=== PATIENT | female | born 1995 | race Caucasian/White ===

== ENCOUNTER 2017-06-20 11:01 | Emergency (ER) | payer SELFPAY ==
[~2017-06-20] VITALS: Ht 162.6 cm; Wt 51.7 kg
[~2017-06-20 11:01] MED LIST: PREN1CAP7
[2017-06-20] MEDS ORDERED: ACETAMINOPHEN 325 MG TAB PO ONE (11:45)
--- NOTE | 2017-06-20 11:47 | PD ---
HPI Chief Complaint Abdominal pain Date Seen: Jun 20, 2017 Time Seen: 11:30 Travel History International Travel<30 Days: No Contact w/Intl Traveler<30Days: No Known Affected Area: No History of Present Illness HPI Patient is a 22-year-old at 21 weeks and 2 days who presents with crampy abdominal pain since yesterday. She is a patient of Alla Morley at [facility]. She reports that her abdominal pain started yesterday at 11 AM when she says she lost her mucous plug which was associated with clear mucousy vaginal discharge. Since that time she has had bilateral suprapubic crampy abdominal pain, 2-3 out of 10 severity. She has tried drinking water, elevating her feet, warm baths, lying on her left side, none of which has helped. Alla Morley told her to come in and be evaluated. She denies any leakage of fluid, contractions, vaginal bleeding. She reports movement is at baseline. Weeks Gestation: 21 Para: 2 : 3 History Past Medical History Medical History: Denies Significant Hx Obstetric History Obstetric History Patient reports that she has had 2 previous pregnancies and 2 previous full- term deliveries. The first one, she had labor around 30 weeks which required medication tocolysis. After delivery, she had some retained products of conception for which she required a D and C. First baby was born 7 lbs. 10 oz. This baby is currently healthy. The second one, she again had labor, which did not require medication. Second baby was born 7 lbs. 7 oz. Past Surgical History Narrative Surgical D and C [place] teeth removal Family History Narrative Family History She denies any family history of diabetes, hypertension, problems with , any other problems. Family History: Negative Social History Narrative Social History She lives at home with her and 2 children. Alcohol Use: No Tobacco Use: No Substance Abuse: No Allergies-Medications (Allergen,Severity, Reaction): Coded Allergies: No Known Allergies (Unverified Adverse Reaction, Unknown, 06/20/17) Home Meds Reported Medications W/O Vit A W/ Fe Fumar (Citranatal [place] 27-1-260 mg) 1 Cap Cap 11/25/15 Review of Systems General / Constitutional: No: Fever, Chills Eyes: No: Blurred Vision HENT: No: Headaches Cardiovascular: No: Chest Pain or Discomfort, Edema Respiratory: No: Short of Breath Gastrointestinal: Abdominal Pain, No: Nausea, Vomiting Genitourinary: No: Dysuria Musculoskeletal: Cramping, No: Edema Physical Exam Blood pressure 115/76, pulse 107, respiratory rate 16, temperature 98.5 Narrative GENERAL: Well-nourished, well-developed patient. SKIN: Warm and dry. HEAD: Normocephalic and atraumatic. EYES: No scleral icterus. No injection or drainage. ENT: No nasal drainage noted. Mucous membranes pink. Airway patent. NECK: Supple, trachea midline. No JVD. CARDIOVASCULAR: Regular rate and rhythm without murmurs, gallops, or rubs. RESPIRATORY: Breath sounds equal bilaterally. No accessory muscle use. ABDOMEN/GI: Abdomen soft, non-tender, bowel sounds present, no rebound, no guarding Gravid to 21 weeks size GENITOURINARY: External Genitalia: intact and normal in appearance Sterile speculum exam revealed closed cervix with normal white discharge Cervical exam: Long, thick, and closed Membranes: [intact] Uterine Contractions: none FHR: 136 EXTREMITIES: No cyanosis or edema. BACK: Nontender without obvious deformity. No CVA tenderness. NEUROLOGICAL: Awake and alert. Motor and sensory grossly within normal limits. Five out of 5 muscle strength in all muscle groups. Normal speech. Data Data Vital Signs Reviewed: Yes Orders Orders Vital Signs (Adult) .ON ADMISSION (06/20/17 11:40) ^ Labor Status (06/20/17 11:40) Urinalysis - C+S If Indicated (06/20/17 11:40) ^ Hydration (06/20/17 11:40) Acetaminophen (Tylenol) (06/20/17 11:45) MDM Plan Patient is a 22-year-old at 21 weeks and 2 days who presents with crampy abdominal pain since yesterday. 1. abdominal pain - no contractions on monitor. Thus, labor was ruled out. UTI ruled out by UA. -AFVSS -UA unremarkable, no signs of infection -Encouraged by mouth hydration, warm baths, warm compress, bedrest -Tylenol as needed -discharge home s/d/w Dr. Coon Diagnosis Diagnosis: Primary Impression: Abdominal pain affecting , antepartum Additional Impression: Round ligament pain Ruled Out: UTI (urinary tract infection), labor in second trimester Disposition: 01 DISCHARGE HOME Condition: Blair Hunter MD R2 Jun 20, 2017 11:47
[2017-06-20 12:32] LABS: BACTERIA, URINE RARE /hpf; BLOOD, URINE NEG (NEG); COMMENT (UR) CULT NOT INDICATED; CULTURE IF INDICATED CULT NOT INDICATED; GLUCOSE,URINE NEG (NEG); KETONE, URINE NEG (NEG); NITRITE,URINE NEG (NEG); PH, URINE 6.5 (5.0-8.5); URINE COLOR LIGHT-YELLOW (YELLW/STRAW)
== END 2017-06-20 12:15 | disposition home or self-care (01) ==
LOC: HOBED 11:01
DX: O26.892 Other specified pregnancy related conditions, second trimester (principal); R10.2 Pelvic and perineal pain; Z3A.21 21 weeks gestation of pregnancy
CPT/HCPCS: 81001; 99283

== ENCOUNTER 2017-10-24 10:43 | Inpatient (IN) | payer MEDICAID, OTHER ==
[~2017-10-24] VITALS: Ht 162.6 cm; Wt 58.0 kg
[2017-10-24] VITALS (49 sets, daily range): BP systolic 95–145; BP diastolic 42–85; PULSE 65–114; RESP 16–18; TEMP 97.6–98.5
--- NOTE | 2017-10-24 11:29 | HHI.HP ---
HPI Chief Complaint Water broke and contractions Date Seen: Oct 24, 2017 Time Seen: 11:22 Travel History International Travel<30 Days: No Contact w/Intl Traveler<30Days: No Known Affected Area: No History of Present Illness HPI Patient is 22-year-old white female previous vaginal delivery 2 now at 39 weeks he goes to the [facility] presents with spontaneous rupture membranes. amnisure is positive. She has no vaginal bleeding. heart tones are reactive and she is matt every 2-3 minutes. Weeks Gestation: 39 Para: 2 : 3 History Obstetric History Obstetric History 2 vaginal deliveries in the past both deliveries had a complicated third stage of labor with retained placenta or breaking of the umbilical cord and requiring manual extraction with the last delivery. Her first delivery was spontaneous as well placenta delivered in the normal fashion that there was a retained piece of placenta that required a D&C several weeks later and she was infected & sick from that Past Surgical History Narrative Surgical D&C for retained placenta Social History Alcohol Use: No Tobacco Use: No Substance Abuse: No Allergies-Medications (Allergen,Severity, Reaction): Coded Allergies: No Known Allergies (Unverified Adverse Reaction, Unknown, 08/17/17) Home Meds Reported Medications W/O Vit A W/ Fe Fumar (Citranatal [place] 27-1-260 mg) 1 Cap Cap 11/25/15 Review of Systems General / Constitutional: No: Fever, Weight Gain, Chills, Other Eyes: No: Diploplia, Blurred Vision, Visual changes, Pain, Photophobia HENT: No: Headaches, Vertigo, Lightheadedness Cardiovascular: No: Irregular Rhythm, Chest Pain or Discomfort, Palpitations, Tachycardia, Syncope, Varicosities, Edema, Cyanosis Respiratory: No: Cough, Short of Breath, Other Gastrointestinal: Abdominal Pain, No: Nausea, Vomiting, Diarrhea Genitourinary: No: Decreased Urinary Output, Oliguria Musculoskeletal: No: Limited ROM, Weakness, Cramping, Edema, Pain Skin: No Rash, No Itching, No Dryness, No Lumps, No Change in Pigmentation, No Change in Nails, No Alopecia, No Lesions Neurologic: No: Weakness, Dizziness, Syncope, Focal Abnormalities, Coordination Problem, Headache, Slurred Speech, Seizures Psychiatric: No: Depression, Suicidal Ideations, Homicidal Ideation Endocrine: No: Heat Intolerance, Cold Intolerance, Polydipsia, Polyuria, Other Physical Exam Narrative GENERAL: Well-nourished, well-developed patient. SKIN: Warm and dry. HEAD: Normocephalic and atraumatic. EYES: No scleral icterus. No injection or drainage. ENT: No nasal drainage noted. Mucous membranes pink. Airway patent. NECK: Supple, trachea midline. No JVD. CARDIOVASCULAR: Regular rate and rhythm without murmurs, gallops, or rubs. RESPIRATORY: Breath sounds equal bilaterally. No accessory muscle use. BREASTS: Bilateral exam showed no masses , no retractions, no nipple discharge. ABDOMEN/GI: Abdomen soft, non-tender, bowel sounds present, no rebound, no guarding Gravid to [-39] weeks size Fundal Height: [39-] GENITOURINARY: External Genitalia: intact and normal in appearance BUS glands: [-] Cervix: [ant-] Dilatation: [-2-3] Effacement: [60-] Station: [-2] Presentation: [vtx-] Membranes: [ ruptured] Uterine Contractions: [q 3 min-] FHT's: Category: [-1] Baseline: [-133] Reactive: [R-] Variability: [-mod] Decels: [-none] EXTREMITIES: No cyanosis or edema. BACK: Nontender without obvious deformity. No CVA tenderness. NEUROLOGICAL: Awake and alert. Motor and sensory grossly within normal limits. Five out of 5 muscle strength in all muscle groups. Normal speech. Caprini VTE Risk Assessment Caprini VTE Risk Assessment: No/Low Risk (score <= 1) Caprini Risk Assessment Model Point Value = 1 Point Value = 2 Point Value = 3 Point Value = 5 Age 41-60 Minor surgery BMI > 25 kg/m2 Swollen legs Varicose veins or History of unexplained or recurrent spontaneous Oral contraceptives or hormone replacement Sepsis (< 1 month) Serious lung disease, including pneumonia (< 1 month) Abnormal pulmonary function Acute myocardial infarction Congestive heart failure (< 1 month) History of inflammatory bowel disease Medical patient at bed rest Age 61-74 Arthroscopic surgery Major open surgery (> 45 min) Laparoscopic surgery (> 45 min) Malignancy Confined to bed (> 72 hours) Immobilizing plaster cast Central venous access Age >= 75 History of VTE Family history of VTE Factor V Leiden Prothrombin [id number] Lupus anticoagulant Anticardiolipin antibodies Elevated serum homocysteine Heparin-induced thrombocytopenia Other congenital or acquired thrombophilia Stroke (< 1 month) Elective arthroplasty Hip, pelvis, or leg fracture Acute spinal cord injury (< 1 month) Prophylaxis Regimen Total Risk Factor Score Risk Level Prophylaxis Regimen 0-1 Low Early ambulation 2 Moderate Order ONE of the following: *Sequential Compression Device (SCD) *Heparin 5000 units SQ BID 3-4 Higher Order ONE of the following medications: *Heparin 5000 units SQ TID *Enoxaparin/Lovenox 40 mg SQ daily (WT < 150 kg, CrCl > 30 mL/min) *Enoxaparin/Lovenox 30 mg SQ daily (WT < 150 kg, CrCl > 10-29 mL/min) *Enoxaparin/Lovenox 30 mg SQ BID (WT < 150 kg, CrCl > 30 mL/min) AND/OR *Sequential Compression Device (SCD) 5 or more Highest Order ONE of the following medications: *Heparin 5000 units SQ TID (Preferred with Epidurals) *Enoxaparin/Lovenox 40 mg SQ daily (WT < 150 kg, CrCl > 30 mL/min) *Enoxaparin/Lovenox 30 mg SQ daily (WT < 150 kg, CrCl > 10-29 mL/min) *Enoxaparin/Lovenox 30 mg SQ BID (WT < 150 kg, CrCl > 30 mL/min) AND *Sequential Compression Device (SCD) Data Data Orders Orders Ob (2e) Additional Admit Info (10/24/17 11:11) Assessment/Plan Assessment and Plan Patient is 22-year-old white female at 39 weeks [facility] the [facility] and presents with spontaneous rupture membranes at approximately 3: 00 this morning, no vaginal bleeding noted. Her amnisure positive and gross rupture noted, heart rate reactive and contractions seen. Cervix is 2-3 cm/60/-2/vertex Impression--term intrauterine with spontaneous rupture membranes and latent phase lab Plan--admission to hospital, managed labor appropriately and augment as needed. Anticipate vaginal delivery. Will be watchful of the third stage of labor in this patient particularly and that she is planning epidural and may well need manual extraction of his placenta. Saud Coon II, MD Oct 24, 2017 11:29
[2017-10-24] MEDS ORDERED: SODIUM CHLOR 0.9% 1000 ML INJ 1,000 ML IV PRN (12:00)
[2017-10-24] MEDS ORDERED: CITRIC ACID-SODIUM CITRATE LIQ 30 ML UDC PO SCH (12:00)
[2017-10-24] MEDS ORDERED: LIDOCAINE HCL 1% 50 ML VIAL I-DERMAL PRN (12:00)
[2017-10-24] MEDS ORDERED: LIDOCAINE HCL 1% 50 ML VIAL INFIL PRN (12:00)
[2017-10-24] MEDS ORDERED: MINERAL OIL 10 ML VIAL TOPICAL PRN (12:00)
[2017-10-24] MEDS ORDERED: OXYTOCIN 30 UNITS-500ML PREMIX 500 ML IV ONE (12:00)
[2017-10-24] MEDS ORDERED: LACTATED RINGER'S 1000 ML INJ 1,000 ML IV PRN (12:00)
[2017-10-24] MEDS ORDERED: SODIUM CHLORID 0.9% 500 ML INJ 500 ML IV PRN (12:00)
[2017-10-24 12:26] LABS: AUTOMATED NEUTROPHIL # 8.2 TH/MM3 (1.8-7.7); BASOPHIL % 0.3 % (0.0-2.0); EOSINOPHIL % 0.2 % (0.0-4.0); HEMATOCRIT 31.6 % (35.0-46.0); HEMOGLOBIN 10.3 GM/DL (11.6-15.3); LYMPHOCYTE # 1.8 TH/MM3 (1.0-4.8); MEAN CELL VOLUME 73.7 FL (80.0-100.0); MEAN CORPUSCULAR HEMOGLOBIN 24.1 PG (27.0-34.0); MEAN CORPUSCULAR HGB CONC 32.8 % (32.0-36.0); MONO % 6.5 % (0.0-8.0); MONOCYTE # 0.7 TH/MM3 (0-0.9); PLATELET COUNT 165 TH/MM3 (150-450); RED BLOOD COUNT 4.28 MIL/MM3 (4.00-5.30); WHITE BLOOD COUNT 10.8 TH/MM3 (4.0-11.0)
[2017-10-24 12:41] LABS: BACTERIA, URINE RARE /hpf; BILIRUBIN, URINE NEG (NEG); BLOOD, URINE NEG (NEG); GLUCOSE,URINE NEG (NEG); KETONE, URINE NEG (NEG); MUCUS URINE FEW /lpf (OCC); NITRITE,URINE NEG (NEG); SQUAMOUS EPITHELIAL CELL URINE 1 /hpf (0-5); URINE COLOR YELLOW (YELLW/STRAW); URINE LEUKOCYTE ESTERASE TRACE (NEG)
[2017-10-24] MEDS ORDERED: OXYTOCIN 30 UNITS-500ML PREMIX 500 ML IV PRN (14:45)
[2017-10-24] MEDS ORDERED: DIPHTH/TETANUS/ACEL PERTUSSIS (BOOSTER) 0.5 ML VIAL/PFS IM ONE (16:00)
[2017-10-24] MEDS ORDERED: MEASLES, MUMPS, RUBELLA VACCINE 0.5 ML VIAL SQ ONE (16:00)
[2017-10-24] MEDS ORDERED: fentaNYL 2MCG-BUPIV 0.125% INJ 100 ML ONE (16:35)
[2017-10-24] MEDS: LACTATED RINGER'S 1000 ML INJ 1,000 ML IV SCH ×2 (18:21→20:00)
[2017-10-24] MEDS ORDERED: ePHEDrine/NS 25 MG/5 ML SYRINGE IV PUSH PRN (18:30)
[2017-10-24] MEDS ORDERED: DO NOT ADMINISTER ANTICOAGULANTS PRN (18:30)
[2017-10-24] MEDS ORDERED: NO SYSTEM NARCOTICS PRN (18:30)
[2017-10-24] MEDS ORDERED: fentaNYL 2MCG-BUPIV 0.125% 100 ML EPIDURAL SCH (18:30)
[2017-10-24] MEDS ORDERED: LIDOCAINE HCL 1.5% PF 20 ML AMP ONE (19:44)
[2017-10-24] MEDS ORDERED: LIDOCAINE HCL 1% 20 ML VIAL ONE (20:24)
--- NOTE | 2017-10-24 20:54 | PD.OB.DELI ---
Weeks gestation: 39 Anesthesia: Epidural Episiotomy: None Vaginal Delivery: Normal Presentation: Occiput anterior Nuchal Cord: None Delayed cord clamping (45 sec): Yes : Female, Single Delivery date: Oct 24, 2017 Delivery time: 20:38 One Minute : 9 Five Minute : 9 Weight: 3010 gm Placenta: Spontaneous delivery, Intact Laceration: Perineal laceration, 2 deg Repair: Chromic running Estimated blood loss: 100 Saud Coon II, MD Oct 24, 2017 20:54
[2017-10-24] MEDS ORDERED: WITCH HAZEL 50%/GLYCERIN 12.5% 40 PAD JAR TOPICAL PRN (21:00)
[2017-10-24] MEDS ORDERED: BENZOCAINE 20% TOPICAL SPRAY 60 ML CAN TOPICAL PRN (21:00)
[2017-10-24] MEDS ORDERED: ACETAMINOPHEN 325 MG TAB PO PRN (21:00)
[2017-10-24] MEDS ORDERED: OXYTOCIN 30 UNITS-500ML PREMIX 500 ML IV SCH (21:00)
[2017-10-24] MEDS ORDERED: ZOLPIDEM TARTRATE 5 MG TAB PO PRN (21:00)
[2017-10-24] MEDS ORDERED: ALUMINUM/MAGNESIUM/SIMETH 30 ML CUP PO PRN (21:00)
[2017-10-24] MEDS: SODIUM CHLORIDE 0.9% FLUSH 10 ML FLUSH IV FLUSH SCH (21:00)
[2017-10-24] MEDS ORDERED: SODIUM CHLORIDE 0.9% FLUSH 10 ML FLUSH IV FLUSH PRN (21:00)
[2017-10-24] MEDS: IBUPROFEN 800 MG TAB PO PRN (21:24)
[2017-10-24] MEDS: oxyCODONE/ACETAMINOPHEN 5 MG/325 MG TAB PO PRN (21:25)
[2017-10-25] VITALS (127 sets, daily range): BP systolic 77–175; BP diastolic 39–95; PULSE 65–137; RESP 16–20; TEMP 97.7–98.9; O2SAT 97–100
[2017-10-25] MEDS ORDERED: METHYLERGONOVINE MALEATE 0.2 MG/ML VIAL ONE (00:46)
[2017-10-25] MEDS ORDERED: OXYTOCIN 30 UNITS-500ML PREMIX 500 ML ONE (01:01)
[2017-10-25] MEDS ORDERED: TRANEXAMIC ACID INJ 1,000 MG/10 ML AMP ONE (01:09)
[2017-10-25] MEDS ORDERED: MISOPROSTOL 200 MCG TAB ONE (01:09)
[2017-10-25] MEDS ORDERED: MISOPROSTOL 200 MCG TAB PO ONE (01:45)
[2017-10-25] MEDS ORDERED: OXYTOCIN 30 UNITS-500ML PREMIX 500 ML IV ONE (01:45)
[2017-10-25] MEDS ORDERED: TRANEXAMIC ACID INJ 1,000 MG in SODIUM CHLORIDE 0.9% INJ 100 ML IV ONE (01:45)
[2017-10-25 01:49] LABS: AUTOMATED NEUTROPHIL # 10.6 TH/MM3 (1.8-7.7); BASOPHIL % 0.2 % (0.0-2.0); EOSINOPHIL % 0.1 % (0.0-4.0); HEMATOCRIT 21.9 % (35.0-46.0); HEMOGLOBIN 7.2 GM/DL (11.6-15.3); LYMPH % 11.4 % (9.0-44.0); LYMPHOCYTE # 1.5 TH/MM3 (1.0-4.8); MEAN CELL VOLUME 73.1 FL (80.0-100.0); MEAN CORPUSCULAR HEMOGLOBIN 24.2 PG (27.0-34.0); MEAN PLATELET VOLUME 8.6 FL (7.0-11.0); MONO % 9.1 % (0.0-8.0); MONOCYTE # 1.2 TH/MM3 (0-0.9); NEUT % 79.2 % (16.0-70.0); PLATELET COUNT 115 TH/MM3 (150-450); RED BLOOD COUNT 2.99 MIL/MM3 (4.00-5.30); RED CELL DISTRIBUTION WIDTH 13.7 % (11.6-17.2); WHITE BLOOD COUNT 13.4 TH/MM3 (4.0-11.0)
[2017-10-25 01:57] LABS: INTERNATIONAL NORMALIZED RATIO 1.3 RATIO; PROTHROMBIN TIME - PATIENT 12.9 SEC (9.8-11.6)
[2017-10-25] MEDS: ONDANSETRON ODT 4 MG TAB PO PRN ×2 (02:01→08:15)
[2017-10-25] MEDS ORDERED: MORPHINE SULFATE 4 MG/ML INJ ONE (02:25)
[2017-10-25] MEDS ORDERED: SODIUM CHLOR 0.9% 250 ML INJ 250 ML IV ONE (02:30)
--- NOTE | 2017-10-25 02:34 | HHI.OB ---
Subjective Post Day: 0 Remarks This patient is now approximately 6 hours and now experiencing hemorrhage, patient's uterus is firm below the umbilicus, center was checked on delivery and had no missing or absent portions or parts, and only a small tiny second-degree perineal laceration was repaired easily and there were no other lacerations or bleeding sites, however she has continued to bleed now soaking at least half a dozen pads, her vital signs are stable, O2 sats 99%, and her bleeding has decreased with medications given which include 1 g of tranexamic acid IV, 0.2 mg of Methergine IM, IV oxytocin continuously. H&H is from /30 down to 7 /.9 and her PT and PTT have gone out some 14 and 40, INR is 1.3, plan to give 2 units packed red cells and 2 units of fresh frozen plasma to try and stay ahead of any coagulopathy that may be trying to develop. The patient's bleeding persists and plan made to the operating room to place intrauterine balloon to tamponade after curetting the uterus. Objective Vitals/I&O Vital Signs Date Time Temp Pulse Resp B/P (MAP) Pulse Ox O2 Delivery O2 Flow Rate FiO2 10/25/17 02:15 106 10/25/17 02:15 111 118/73 (88) 10/25/17 02:10 100 10/25/17 02:04 16 10/25/17 02:00 85 113/73 (86) 10/25/17 01:49 88 113/71 (85) 10/25/17 01:45 82 114/69 (84) 10/25/17 01:36 104 113/76 (88) 10/25/17 01:30 137 113/83 (93) 10/25/17 01:27 136 123/82 (96) 10/25/17 01:20 99 116/72 (87) 10/25/17 01:15 98 114/77 (89) 10/25/17 01:00 88 107/65 (79) 10/25/17 01:00 88 107/65 (79) 10/25/17 00:58 92 101/60 (74) 10/25/17 00:45 111 93/52 (66) 10/25/17 00:43 110 88/39 (55) 10/25/17 00:41 123 88/44 (59) 10/25/17 00:40 132 80/46 (57) 10/25/17 00:39 126 77/48 (58) 10/25/17 00:15 97 100/61 (74) 10/25/17 00:00 79 113/64 (80) 10/24/17 23:45 87 114/65 (81) 10/24/17 23:35 88 113/69 (84) 10/24/17 23:29 114 117/75 (89) 10/24/17 23:16 83 110/55 (73) 10/24/17 23:06 113 102/57 (72) 10/24/17 22:35 18 10/24/17 22:30 104 137/75 (95) 10/24/17 22:19 16 10/24/17 22:15 102 141/83 (102) 10/24/17 22:05 16 10/24/17 22:00 93 138/78 (98) 10/24/17 21:50 18 10/24/17 21:45 95 142/85 (104) 10/24/17 21:35 18 10/24/17 21:30 84 145/83 (103) 10/24/17 21:16 18 10/24/17 21:15 91 141/79 (99) 10/24/17 21:05 18 10/24/17 21:02 106 131/66 (87) 10/24/17 20:01 84 110/42 (64) 10/24/17 19:39 97.6 18 10/24/17 19:30 68 118/61 (80) 10/24/17 19:12 65 106/48 (67) 10/24/17 19:00 83 95/42 (59) 10/24/17 18:15 78 102/50 (67) 10/24/17 18:06 18 10/24/17 18:00 78 110/44 (66) 10/24/17 17:56 91 121/63 (82) 10/24/17 17:55 90 10/24/17 17:50 89 110/49 (69) 10/24/17 17:50 80 10/24/17 17:45 83 10/24/17 17:45 79 108/62 (77) 10/24/17 17:40 82 3/12/18 17:40 84 114/54 (74) 10/24/17 17:35 84 107/56 (73) 10/24/17 17:35 80 10/24/17 17:30 87 110/49 (69) 10/24/17 17:30 75 10/24/17 17:27 84 103/60 (74) 10/24/17 17:25 88 10/24/17 17:20 77 10/24/17 17:20 77 110/64 (79) 10/24/17 17:15 76 10/24/17 17:15 75 108/70 (83) 10/24/17 17:12 84 111/48 (69) 10/24/17 17:10 79 10/24/17 17:05 79 10/24/17 17:02 98.1 10/24/17 17:02 18 10/24/17 17:00 78 105/59 (74) 10/24/17 17:00 79 10/24/17 16:59 76 107/61 (76) 10/24/17 15:45 16 10/24/17 14:15 98.4 16 10/24/17 12:11 76 110/66 (81) 10/24/17 12:11 16 10/24/17 11:41 98.5 10/24/17 11:08 75 110/61 (77) Objective Remarks GENERAL: Well-nourished, thin patient. CARDIOVASCULAR: Regular rate and rhythm without murmurs, gallops, or rubs. RESPIRATORY: Breath sounds equal bilaterally. No accessory muscle use. ABDOMEN/GI: Abdomen soft, -tender. Fundus: Firm, below umbilicus. GENITOURINARY: Light to moderate bleeding. EXTREMITIES: No cyanosis or edema, non-tender, without signs of DVT. Medications and IVs Current Medications Medications (Trade) Dose Ordered Sig/Mathieu Route Start Time Stop Time Status Last Admin Lactated Ringer's 1,000 ml @ 125 mls/hr Q8H IV 10/24/17 12:00 10/24/17 20:00 Lactated Ringer's 1,000 ml @ 3,000 mls/hr Q20M PRN IV 10/24/17 12:00 Sodium Chloride 500 ml @ 1,000 mls/hr ONCE PRN IV 10/24/17 12:00 10/26/17 11:59 Sodium Chloride 1,000 ml @ 100 mls/hr Q10H PRN IV 10/24/17 12:00 (Xylocaine 1% Inj (50 ml)) 0.1 ml UNSCH X1 PRN I-DERMAL 10/24/17 12:00 10/27/17 11:59 (Bicitra Liq) 30 ml SHELL SORTER PO 10/24/17 12:00 10/28/17 11:59 (fentaNYL INJ) 50 mcg Q1H PRN IV PUSH 10/24/17 12:00 10/25/17 02:01 (fentaNYL INJ) 100 mcg Q1H PRN IV PUSH 10/24/17 12:00 (Xylocaine 1% Inj (50 ml)) 10 ml UNSCH X1 PRN INFIL 10/24/17 12:00 10/26/17 11:59 (Muri-Lube Oil) 10 ml UNSCH PRN TOPICAL 10/24/17 12:00 Oxytocin 500 ml @ 1 mls/hr TITRATE PRN IV 10/24/17 14:45 10/24/17 18:22 Miscellaneous Information No systemic narcotics to be given except... UNSCH PRN .XX 10/24/17 18:30 10/25/17 18:29 Miscellaneous Information DO NOT ADMINISTER ANY ANTICOAGUL... UNSCH PRN .XX 10/24/17 18:30 10/25/17 18:29 Fentanyl/ Bupivacaine HCl 100 ml @ 0 mls/hr TITRATE EPIDURAL 10/24/17 18:30 (ePHEDrine/NS 25 MG/5 ML SYR) 10 mg UNSCH PRN IV PUSH 10/24/17 18:30 10/25/17 18:29 (NS Flush) 2 ml BID IV FLUSH 10/24/17 21:00 (NS Flush) 2 ml UNSCH PRN IV FLUSH 10/24/17 21:00 (Tylenol) 650 mg Q4H PRN PO 10/24/17 21:00 (Motrin) 800 mg Q8H PRN PO 10/24/17 21:00 10/24/17 21:24 (Percocet 5-325 Mg) 1 tab Q4H PRN PO 10/24/17 21:00 (Americaine 20% Top Spr) 1 spray Q4H PRN TOPICAL 10/24/17 21:00 (Tucks Pads) 1 applic QID PRN TOPICAL 10/24/17 21:00 (Joleen-Colace) 2 tab Q12H PRN PO 10/24/17 21:00 (Ambien) 5 mg HS PRN PO 10/24/17 21:00 (Mag-Al Plus Susp Liq) 15 ml Q8H PRN PO 10/24/17 21:00 (Zofran Odt) 4 mg Q6H PRN PO 10/24/17 21:00 10/25/17 02:01 (Percocet 5-325 Mg) 2 tab Q4H PRN PO 10/24/17 21:30 10/24/17 21:25 Oxytocin 500 ml @ 500 mls/hr NOW ONCE IV 10/25/17 01:45 10/25/17 02:44 Sodium Chloride 250 ml @ 15 mls/hr ONCE ONCE IV 10/25/17 02:30 10/25/17 19:09 UNV Assessment/Plan Assessment and Plan Impression- hemorrhage after vaginal delivery that was uncomplicated Plan-continue measures to treat hemorrhage medically at first with uterotonic agents and TXA ,, transfusion because of an increase in her PT PTT as well as decrease in hemoglobin hematocrit Will give 2 units of packed red cells and 2 units of fresh frozen plasma If patient's bleeding persists we will moved to the operating room for an anesthetic and placement of the intrauterine B T catheter intrauterine balloon Saud Coon II, MD Oct 25, 2017 02:34
[2017-10-25] MEDS: LACTATED RINGER'S 1000 ML INJ 1,000 ML IV SCH (04:00)
[2017-10-25] MEDS: IBUPROFEN 800 MG TAB PO PRN ×3 (08:14→23:07)
[2017-10-25] MEDS: oxyCODONE/ACETAMINOPHEN 5 MG/325 MG TAB PO PRN ×4 (09:55→23:07)
[2017-10-25 10:57] LABS: INTERNATIONAL NORMALIZED RATIO 1.1 RATIO; PROTHROMBIN TIME - PATIENT 10.9 SEC (9.8-11.6)
[2017-10-25 10:58] LABS: HEMATOCRIT 22.9 % (35.0-46.0); HEMOGLOBIN 8.1 GM/DL (11.6-15.3); MEAN CELL VOLUME 74.6 FL (80.0-100.0); MEAN CORPUSCULAR HEMOGLOBIN 26.4 PG (27.0-34.0); MEAN CORPUSCULAR HGB CONC 35.3 % (32.0-36.0); MEAN PLATELET VOLUME 8.5 FL (7.0-11.0); PLATELET COUNT 108 TH/MM3 (150-450); RED BLOOD COUNT 3.07 MIL/MM3 (4.00-5.30); RED CELL DISTRIBUTION WIDTH 14.9 % (11.6-17.2); WHITE BLOOD COUNT 11.5 TH/MM3 (4.0-11.0)
[2017-10-25] MEDS: DOCUSATE SODIUM 50 MG/SENNA 8.6 MG TAB PO PRN (16:17)
[2017-10-26] MEDS: oxyCODONE/ACETAMINOPHEN 5 MG/325 MG TAB PO PRN ×6 (03:03→22:20)
[2017-10-26 05:51] LABS: HEMOGLOBIN 7.1 GM/DL (11.6-15.3); MEAN CORPUSCULAR HEMOGLOBIN 25.2 PG (27.0-34.0); MEAN CORPUSCULAR HGB CONC 33.7 % (32.0-36.0); MEAN PLATELET VOLUME 8.6 FL (7.0-11.0); PLATELET COUNT 95 TH/MM3 (150-450); RED CELL DISTRIBUTION WIDTH 14.7 % (11.6-17.2); WHITE BLOOD COUNT 9.8 TH/MM3 (4.0-11.0)
[2017-10-26 06:06] LABS: PROTHROMBIN TIME - PATIENT 10.2 SEC (9.8-11.6)
[2017-10-26] MEDS: IBUPROFEN 800 MG TAB PO PRN ×3 (06:41→22:19)
[2017-10-26 08:00] VITALS: BP 112/66; PULSE 78; RESP 18; TEMP 98.1; O2SAT 99
[2017-10-26] MEDS: SODIUM CHLORIDE 0.9% FLUSH 10 ML FLUSH IV FLUSH SCH ×2 (08:05→08:41)
--- NOTE | 2017-10-26 09:19 | HHI.OB ---
Subjective Remarks S: Patient reports her bleeding is scant, she was ambulating without difficulty last night but feels a little lightheaded today. She reports she took percocet without eating. She denies any other symptoms, CP/SOB/N/V/F/C. She has not other complaints today, she is without difficultu O: VSS AF A&Ox3, NAD CTAB RRR soft, fundus firm, NT, NABS calves NT A/P: 1. PPD#2 s/p , continue routine care 2. PPH: patient received 2u pRBC and 2u FFP, Hgb this am 7.1. Discussed additional transfusion with patient vs observation this morning and orthostatics. Discussed with patient that likely to be more active at home and if she is symptomatic now, would likely benefit from at least 1u pRBC. Patient in agreement. 3. : support offered 4. Contraception: follow up with clinic 5. O+ 6. Dispo: consider d/c home later today Objective Vitals/I&O Vital Signs Date Time Temp Pulse Resp B/P (MAP) Pulse Ox O2 Delivery O2 Flow Rate FiO2 10/26/17 08:00 98.1 78 18 99 10/26/17 08:00 112/66 (81) 10/25/17 20:00 97.7 84 20 109/57 (74) 98 10/25/17 16:15 83 17 10/25/17 16:15 175/95 (121) 10/25/17 13:00 76 112/66 (81) 10/25/17 11:00 88 18 105/61 (76) 99 10/25/17 11:00 98.1 10/25/17 10:22 16 10/25/17 10:15 98 99 10/25/17 10:10 100 99 10/25/17 10:05 98 99 10/25/17 10:00 100 103/58 (73) 100 10/25/17 10:00 96 10/25/17 09:55 94 99 10/25/17 09:50 104 100 10/25/17 09:49 98.9 10/25/17 09:49 17 10/25/17 09:45 93 10/25/17 09:45 105 105/58 (74) 99 10/25/17 09:42 98.9 103 16 105/58 99 10/25/17 09:40 98 99 10/25/17 09:35 97 99 10/25/17 09:30 97 99 10/25/17 09:25 94 99 10/25/17 09:20 92 99 Objective Remarks GENERAL: Well-nourished, thin patient. CARDIOVASCULAR: Regular rate and rhythm without murmurs, gallops, or rubs. RESPIRATORY: Breath sounds equal bilaterally. No accessory muscle use. ABDOMEN/GI: Abdomen soft, -tender. Fundus: Firm, below umbilicus. GENITOURINARY: Light to moderate bleeding. EXTREMITIES: No cyanosis or edema, non-tender, without signs of DVT. Medications and IVs Current Medications Medications (Trade) Dose Ordered Sig/Mathieu Route Start Time Stop Time Status Last Admin Lactated Ringer's 1,000 ml @ 125 mls/hr Q8H IV 10/24/17 12:00 10/24/17 20:00 Lactated Ringer's 1,000 ml @ 3,000 mls/hr Q20M PRN IV 10/24/17 12:00 Sodium Chloride 500 ml @ 1,000 mls/hr ONCE PRN IV 10/24/17 12:00 10/26/17 11:59 Sodium Chloride 1,000 ml @ 100 mls/hr Q10H PRN IV 10/24/17 12:00 (Xylocaine 1% Inj (50 ml)) 0.1 ml UNSCH X1 PRN I-DERMAL 10/24/17 12:00 10/27/17 11:59 (Bicitra Liq) 30 ml [employer] PO 10/24/17 12:00 10/28/17 11:59 (fentaNYL INJ) 50 mcg Q1H PRN IV PUSH 10/24/17 12:00 10/25/17 02:01 (fentaNYL INJ) 100 mcg Q1H PRN IV PUSH 10/24/17 12:00 (Xylocaine 1% Inj (50 ml)) 10 ml UNSCH X1 PRN INFIL 10/24/17 12:00 10/26/17 11:59 (Muri-Lube Oil) 10 ml UNSCH PRN TOPICAL 10/24/17 12:00 Oxytocin 500 ml @ 1 mls/hr TITRATE PRN IV 10/24/17 14:45 10/24/17 18:22 Fentanyl/ Bupivacaine HCl 100 ml @ 0 mls/hr TITRATE EPIDURAL 10/24/17 18:30 (NS Flush) 2 ml BID IV FLUSH 10/24/17 21:00 10/26/17 08:41 (NS Flush) 2 ml UNSCH PRN IV FLUSH 10/24/17 21:00 (Tylenol) 650 mg Q4H PRN PO 10/24/17 21:00 (Motrin) 800 mg Q8H PRN PO 10/24/17 21:00 10/26/17 06:41 (Percocet 5-325 Mg) 1 tab Q4H PRN PO 10/24/17 21:00 10/26/17 06:41 (Americaine 20% Top Spr) 1 spray Q4H PRN TOPICAL 10/24/17 21:00 (Tucks Pads) 1 applic QID PRN TOPICAL 10/24/17 21:00 (Joleen-Colace) 2 tab Q12H PRN PO 10/24/17 21:00 10/25/17 16:17 (Ambien) 5 mg HS PRN PO 10/24/17 21:00 (Mag-Al Plus Susp Liq) 15 ml Q8H PRN PO 10/24/17 21:00 (Zofran Odt) 4 mg Q6H PRN PO 10/24/17 21:00 10/25/17 08:15 (Percocet 5-325 Mg) 2 tab Q4H PRN PO 10/24/17 21:30 10/26/17 03:03 Assessment/Plan Assessment and Plan Impression- hemorrhage after vaginal delivery that was uncomplicated Plan-continue measures to treat hemorrhage medically at first with uterotonic agents and TXA ,, transfusion because of an increase in her PT PTT as well as decrease in hemoglobin hematocrit Will give 2 units of packed red cells and 2 units of fresh frozen plasma If patient's bleeding persists we will moved to the operating room for an anesthetic and placement of the intrauterine B T catheter intrauterine balloon Va Encarnacion MD Oct 26, 2017 09:19
[2017-10-26] MEDS ORDERED: ACETAMINOPHEN 325 MG TAB PO PRN (09:30)
[2017-10-26] MEDS ORDERED: diphenhydrAMINE HCL 25 MG CAP PO PRN (09:30)
[2017-10-26] MEDS ORDERED: SODIUM CHLOR 0.9% 250 ML INJ 250 ML IV ONE (09:30)
[2017-10-26 10:21] VITALS: BP_SYST 111; BP_SYST 112; BP_SYST 114; BP_DIAS 66; BP_DIAS 68; BP_DIAS 72; PULSE 78; RESP 20; O2SAT 98
[2017-10-26 10:25] VITALS: BP 114/66; PULSE 78; RESP 16; TEMP 98.5; O2SAT 100
[2017-10-26 10:44] VITALS: BP 109/64; PULSE 76; RESP 16; TEMP 97.8; O2SAT 99
[2017-10-26 13:00] VITALS: BP 119/70; PULSE 78; RESP 18; TEMP 97.8; O2SAT 100
[2017-10-26] MEDS: LACTATED RINGER'S 1000 ML INJ 1,000 ML IV SCH (13:23)
[2017-10-26] MEDS: DOCUSATE SODIUM 50 MG/SENNA 8.6 MG TAB PO PRN (14:41)
[2017-10-26 15:31] LABS: HEMATOCRIT 24.9 % (35.0-46.0); HEMOGLOBIN 8.4 GM/DL (11.6-15.3)
[2017-10-26 20:00] VITALS: BP 118/74; PULSE 77; RESP 16; TEMP 98
[2017-10-27] MEDS: oxyCODONE/ACETAMINOPHEN 5 MG/325 MG TAB PO PRN ×3 (02:28→10:44)
[2017-10-27] MEDS: IBUPROFEN 800 MG TAB PO PRN (06:36)
[2017-10-27 08:00] VITALS: BP 106/62; PULSE 63; RESP 16; TEMP 97.6; O2SAT 100
[2017-10-27] MEDS: SODIUM CHLORIDE 0.9% FLUSH 10 ML FLUSH IV FLUSH SCH (09:10)
--- NOTE | 2017-10-27 09:21 | HHI.OB ---
Subjective Post Day: 2 Remarks Patient is day 2-08/16 from a vaginal delivery and hemorrhage. She is currently doing well bleeding is minimal to scant. She received a total of 3 units of blood in response the hemorrhage 2 on the night she delivered and one the following morning. Posttransfusion hematocrit is 24.9 patient's feeling good she is able to eat solid food she is ambulating to the bathroom well and as mentioned her bleeding is minimal. She does complain of crampy pain. Objective Vitals/I&O Vital Signs Date Time Temp Pulse Resp B/P (MAP) Pulse Ox O2 Delivery O2 Flow Rate FiO2 10/27/17 08:00 97.6 63 16 106/62 (77) 100 10/26/17 20:00 98.0 77 16 118/74 (89) 10/26/17 13:00 97.8 78 18 119/70 (86) 100 10/26/17 10:44 97.8 76 16 109/64 99 10/26/17 10:25 98.5 78 16 114/66 100 10/26/17 10:21 78 20 114/66 (82) 98 112/68 (83) 111/72 (85) Objective Remarks GENERAL: Well-nourished, thin patient. CARDIOVASCULAR: Regular rate and rhythm without murmurs, gallops, or rubs. RESPIRATORY: Breath sounds equal bilaterally. No accessory muscle use. ABDOMEN/GI: Abdomen soft, -tender. Fundus: Firm, below umbilicus. GENITOURINARY: Light to moderate bleeding. EXTREMITIES: No cyanosis or edema, non-tender, without signs of DVT. Medications and IVs Current Medications Medications (Trade) Dose Ordered Sig/Mathieu Route Start Time Stop Time Status Last Admin Lactated Ringer's 1,000 ml @ 125 mls/hr Q8H IV 10/24/17 12:00 10/24/17 20:00 Lactated Ringer's 1,000 ml @ 3,000 mls/hr Q20M PRN IV 10/24/17 12:00 Sodium Chloride 1,000 ml @ 100 mls/hr Q10H PRN IV 10/24/17 12:00 (Xylocaine 1% Inj (50 ml)) 0.1 ml UNSCH X1 PRN I-DERMAL 10/24/17 12:00 10/27/17 11:59 (Bicitra Liq) 30 ml WATCH ADJUSTER PO 10/24/17 12:00 10/28/17 11:59 (fentaNYL INJ) 50 mcg Q1H PRN IV PUSH 10/24/17 12:00 10/25/17 02:01 (fentaNYL INJ) 100 mcg Q1H PRN IV PUSH 10/24/17 12:00 (Muri-Lube Oil) 10 ml UNSCH PRN TOPICAL 10/24/17 12:00 Oxytocin 500 ml @ 1 mls/hr TITRATE PRN IV 10/24/17 14:45 10/24/17 18:22 Fentanyl/ Bupivacaine HCl 100 ml @ 0 mls/hr TITRATE EPIDURAL 10/24/17 18:30 (NS Flush) 2 ml BID IV FLUSH 10/24/17 21:00 10/26/17 08:41 (NS Flush) 2 ml UNSCH PRN IV FLUSH 10/24/17 21:00 (Tylenol) 650 mg Q4H PRN PO 10/24/17 21:00 (Motrin) 800 mg Q8H PRN PO 10/24/17 21:00 10/27/17 06:36 (Percocet 5-325 Mg) 1 tab Q4H PRN PO 10/24/17 21:00 10/26/17 14:41 (Americaine 20% Top Spr) 1 spray Q4H PRN TOPICAL 10/24/17 21:00 (Tucks Pads) 1 applic QID PRN TOPICAL 10/24/17 21:00 (Joleen-Colace) 2 tab Q12H PRN PO 10/24/17 21:00 10/26/17 14:41 (Ambien) 5 mg HS PRN PO 10/24/17 21:00 (Mag-Al Plus Susp Liq) 15 ml Q8H PRN PO 10/24/17 21:00 (Zofran Odt) 4 mg Q6H PRN PO 10/24/17 21:00 10/25/17 08:15 (Percocet 5-325 Mg) 2 tab Q4H PRN PO 10/24/17 21:30 10/27/17 06:36 (Tylenol) 650 mg Q4H PRN PO 10/26/17 09:30 (Benadryl) 25 mg Q4H PRN PO 10/26/17 09:30 Assessment/Plan Assessment and Plan Impression- hemorrhage after vaginal delivery that was uncomplicated , and this is responded well to blood products including 3 units of blood and 2 units of fresh frozen, course has been uneventful since that time Plan--discharge home today on p.o. iron 3 times daily with meals, vitamins, and Motrin 800 mg 4 times daily as needed, she is to schedule appointment with care for women in approximately 6 weeks. Saud Coon II, MD Oct 27, 2017 09:21
[2017-10-27] MEDS ORDERED: IBUP1TAB7 PO (09:24)
[2017-10-27] MEDS: LACTATED RINGER'S 1000 ML INJ 1,000 ML IV SCH (10:40)
== END 2017-10-27 13:08 | disposition home or self-care (01) | DRG 774 ==
LOC: HOBED 10:43 → H2EA 11:16 → H1EA 10-25 10:43
PROVIDERS: ADMIT Obstetrics & Gynecology Maternal & Fetal Medicine; ATTEND Obstetrics & Gynecology Maternal & Fetal Medicine
PROC: 0KQM0ZZ Repair Perineum Muscle, Open Approach (ICD-10-PCS; principal; 2017-10-24)
PROC: 10E0XZZ Delivery of Products of Conception, External Approach (ICD-10-PCS; 2017-10-24)
PROC: 0T9B70Z Drainage of Bladder with Drainage Device, Via Natural or Artificial Opening (ICD-10-PCS; 2017-10-24)
PROC: 00HU33Z Insertion of Infusion Device into Spinal Canal, Percutaneous Approach (ICD-10-PCS; 2017-10-24)
PROC: 3E0R3BZ Introduction of Anesthetic Agent into Spinal Canal, Percutaneous Approach (ICD-10-PCS; 2017-10-24)
PROC: 30233N1 Transfusion of Nonautologous Red Blood Cells into Peripheral Vein, Percutaneous Approach (ICD-10-PCS; 2017-10-25)
PROC: 30233K1 Transfusion of Nonautologous Frozen Plasma into Peripheral Vein, Percutaneous Approach (ICD-10-PCS; 2017-10-25)
DX: O72.1 Other immediate postpartum hemorrhage (principal); O70.1 Second degree perineal laceration during delivery; Z3A.39 39 weeks gestation of pregnancy; Z37.0 Single live birth; Z23 Encounter for immunization
CPT/HCPCS: 36430; 59025; 80307; 81001; 84112; 85014; 85018; 85025; 85027; 85384; 85610; 85730; 86850; 86900; 86901; 86920; 86927; J2210; J2270; J2590; J3010; J7050; J7120; P9016; P9017